=== PATIENT | female | born 1975 | race Caucasian/White ===

== ENCOUNTER 2018-04-15 20:25 | Emergency (ER) | payer MEDICAID ==
[~2018-04-15] VITALS: Ht 160 cm; Wt 63.0 kg
[~2018-04-15 20:25] MED LIST: ATIVAN1 MG ORAL; CELEXA20 MG ORAL; COLACE100 MG ORAL; CYTOMEL50 MCG PO; ENEMA READY TO135 ML RC; TRAZODONE HCL300 MG ORAL
[2018-04-15 21:20] VITALS: BP 118/67
[2018-04-15] MEDS ORDERED: Ketorolac 30mg Inj IV ONE (21:30)
[2018-04-15 21:31] LABS: APPEARANCE,URINE SLIGHTLY CLOUDY; BILIRUBIN, URINE NEGATIVE (NEGATIVE); GLUCOSE, URINE (UA) NEGATIVE (NEGATIVE); KETONES,URINE 1+ (NEGATIVE); LEUKOCYTE ESTERASE ,URINE 1+ (NEGATIVE); NITRITE,URINE NEGATIVE (NEGATIVE); PH,URINE 6.5 (4.5-8.0); PROTEIN,URINE NEGATIVE (NEGATIVE); UROBILINOGEN,URINE 4 MG/DL (0.0-1.0)
[2018-04-15 21:32] LABS: COLOR,URINE YELLOW
[2018-04-15 21:54] LABS: BASOPHILS % (AUTO) 1.7 % (0.0-2.0); EOSINOPHILS % (AUTO) 1.2 % (0.0-3.0); HEMATOCRIT 39.6 % (37.0-47.0); HEMOGLOBIN 13.5 G/DL (12.0-16.0); LYMPHOCYTES % (AUTO) 26.9 % (20.0-45.0); MEAN CORPUSCULAR VOLUME 92 FL (80-99); MONOCYTES % (AUTO) 4.8 % (1.0-10.0); NEUTROPHILS % (AUTO) 65.5 % (45.0-75.0); PLATELET COUNT 163 K/UL (150-450); RED BLOOD COUNT 4.31 M/UL (4.20-5.40); RED CELL DISTRIBUTION WIDTH 12.7 % (11.6-14.8); WHITE BLOOD COUNT 8.1 K/UL (4.8-10.8)
[2018-04-15 22:09] LABS: ANION GAP 5 mmol/L (5-15); BLOOD UREA NITROGEN 15 mg/dL (7-18); CALCIUM 9.1 MG/DL (8.5-10.1); CARBON DIOXIDE 29 MMOL/L (21-32); CHLORIDE 104 MMOL/L (98-107); CREATININE 0.8 MG/DL (0.55-1.30); POTASSIUM 3.7 MMOL/L (3.5-5.1); SODIUM 138 MMOL/L (136-145)
[2018-04-15 22:12] LABS: INR 0.9 (0.9-1.1)
[2018-04-15 22:13] LABS: ALANINE AMINOTRANSFERASE 23 U/L (12-78); ALBUMIN 3.7 G/DL (3.4-5.0); ALBUMIN/GLOBULIN RATIO 1.1 (1.0-2.7); ALKALINE PHOSPHATASE 75 U/L (46-116); ASPARTATE AMINO TRANSFERASE 28 U/L (15-37); BILIRUBIN,TOTAL 0.2 MG/DL (0.2-1.0)
[2018-04-15] MEDS ORDERED: Hydromorphone 0.5mg/0.5ml inj IVP ONE (22:15)
[2018-04-15 23:20] VITALS: BP 121/66
[2018-04-16 01:20] VITALS: BP 126/67
[2018-04-16] MEDS ORDERED: oxyCODONE HCL/Acetaminophen 5/325mg ORAL ONE ×2 (02:26→02:30)
--- NOTE | 2018-04-16 02:27 | Emergency Room Report ---
History of Present Illness General Chief Complaint: Back Pain-No Injury Source: Patient Present Illness HPI Patient presents with R knee pain. She has chronic back pain. The knee pain has been intermittent for many months. It has become unbearable recently. She is on antibiotics for a tooth infection. This has also caused diarrhea. Allergies: Coded Allergies: LEVOTHYROXINE SODIUM (Verified Allergy, Unknown, 09/05/16) SULFAMETHOXAZOLE (Verified Allergy, Unknown, 04/15/18) TRIMETHOPRIM (Verified Allergy, Unknown, 04/15/18) Uncoded Allergies: SYNTHROID (Allergy, Unknown, 09/02/16) Patient History Past Medical History: see triage record Social History Narrative disabled Last Menstrual Period: a week ago Now: No Reviewed Nursing Documentation: PMH: Agreed; PSxH: Agreed Nursing Documentation-PMH Hx Cardiac Problems: No Hx Cancer: No Hx Gastrointestinal Problems: Yes - Gastroporieses Hx Neurological Problems: No - Fibromyalgia, thyroidittis Review of Systems All Other Systems: negative except mentioned in HPI Physical Exam Vital Signs Date Time Temp Pulse Resp B/P (MAP) Pulse Ox O2 Delivery O2 Flow Rate FiO2 04/15/18 20:58 98.7 76 18 111/67 99 98.8 04/15/18 21:20 Room Air Medical Decision Making Diagnostic Impression: Primary Impression: Left knee pain Additional Impressions: Diarrhea Tooth pain Labs Test 04/15/18 21:17 04/15/18 21:40 Urine Color Yellow Urine Appearance Slightly cloudy Urine pH 6.5 (4.5-8.0) Urine Specific [place] 1.015 (1.005-1.035) Urine Protein Negative (NEGATIVE) Urine Glucose (UA) Negative (NEGATIVE) Urine Ketones 1+ (NEGATIVE) Urine Occult Blood 5+ (NEGATIVE) Urine Nitrite Negative (NEGATIVE) Urine Bilirubin Negative (NEGATIVE) Urine Urobilinogen 4 MG/DL (0.0-1.0) Urine Leukocyte Esterase 1+ (NEGATIVE) Urine RBC 40-60 /HPF (0 - 2) Urine WBC 0-2 /HPF (0 - 2) Urine Squamous Epithelial Cells Many /LPF (NONE/OCC) Urine Bacteria Few /HPF (NONE) White Blood Count 8.1 K/UL (4.8-10.8) Red Blood Count 4.31 M/UL (4.20-5.40) Hemoglobin 13.5 G/DL (12.0-16.0) Hematocrit 39.6 % (37.0-47.0) Mean Corpuscular Volume 92 FL (80-99) Mean Corpuscular Hemoglobin 31.3 PG (27.0-31.0) Mean Corpuscular Hemoglobin Concent 34.0 G/DL (32.0-36.0) Red Cell Distribution Width 12.7 % (11.6-14.8) Platelet Count 163 K/UL (150-450) Mean Platelet Volume 8.0 FL (6.5-10.1) Neutrophils (%) (Auto) 65.5 % (45.0-75.0) Lymphocytes (%) (Auto) 26.9 % (20.0-45.0) Monocytes (%) (Auto) 4.8 % (1.0-10.0) Eosinophils (%) (Auto) 1.2 % (0.0-3.0) Basophils (%) (Auto) 1.7 % (0.0-2.0) Erythrocyte Sedimentation Rate 1 MM/HR (0-20) Prothrombin Time 9.4 SEC (9.30-11.50) Prothromb Time International Ratio 0.9 (0.9-1.1) Activated Partial Thromboplast Time 26 SEC (23-33) Sodium Level 138 MMOL/L (136-145) Potassium Level 3.7 MMOL/L (3.5-5.1) Chloride Level 104 MMOL/L (98-107) Carbon Dioxide Level 29 MMOL/L (21-32) Anion Gap 5 mmol/L (5-15) Blood Urea Nitrogen 15 mg/dL (7-18) Creatinine 0.8 MG/DL (0.55-1.30) Estimat Glomerular Filtration Rate > 60 mL/min (>60) Glucose Level 93 MG/DL (74-106) Uric Acid 3.0 MG/DL (2.6-7.2) Calcium Level 9.1 MG/DL (8.5-10.1) Total Bilirubin 0.2 MG/DL (0.2-1.0) Aspartate Amino Transf (AST/SGOT) 28 U/L (15-37) Alanine Aminotransferase (ALT/SGPT) 23 U/L (12-78) Alkaline Phosphatase 75 U/L (46-116) C-Reactive Protein, Quantitative < 0.4 mg/dL (0.00-0.90) Total Protein 7.1 G/DL (6.4-8.2) Albumin 3.7 G/DL (3.4-5.0) Globulin 3.4 g/dL Albumin/Globulin Ratio 1.1 (1.0-2.7) Other X-Ray Diagnostic Results Other X-Ray Diagnostic Results : X-Ray ordered: L knee # of Views/Limited Vs Complete: 3 View Last Vital Signs Date Time Temp Pulse Resp B/P (MAP) Pulse Ox O2 Delivery O2 Flow Rate FiO2 04/16/18 02:37 98.7 74 18 121/66 98 Room Air 209.7 Status: improved Disposition: HOME, SELF-CARE Condition: Improved Referrals: [facility],REFERRING (PCP) Raghavendra Mcpherson M.D. Apr 16, 2018 02:27
[2018-04-16 02:37] VITALS: BP 121/66
--- NOTE | 2018-04-16 10:02 | Diagnostic Imaging Report ---
Indications: Pain Technique: Three views of the right knee Comparison: None Findings: No acute fractures. No dislocations. Joint spaces are preserved. No radiopaque foreign body. Normal mineralization. Impression: No acute process
== END 2018-04-16 02:37 | disposition home or self-care (01) ==
LOC: EMR 21:29
DX: M25.561 Pain in right knee (principal); G89.29 Other chronic pain; M54.9 Dorsalgia, unspecified; R19.7 Diarrhea, unspecified; K08.89 Other specified disorders of teeth and supporting structures; Z88.8 Allergy status to other drugs, medicaments and biological substances; Z88.2 Allergy status to sulfonamides
CPT/HCPCS: 36415; 73562; 80053; 81001; 84550; 85025; 85610; 85651; 85730; 86140; 96374; 96375; 99284; J1170; J1885; J2405

== ENCOUNTER 2018-04-21 17:41 | Emergency (ER) | payer MEDICAID ==
[~2018-04-21] VITALS: Ht 160 cm; Wt 70.3 kg
[2018-04-21 18:19] VITALS: BP 111/62
[2018-04-21] MEDS ORDERED: AMOXICILLI200 MG/5 M PO (18:32)
[2018-04-21] MEDS ORDERED: AMOXICILLI250 MG/5 M ORAL (18:32)
[2018-04-21] MEDS ORDERED: OMEPRAZOLE40 M1 ORAL (18:32)
[2018-04-21] MEDS ORDERED: TIROSINT125 MCG ORAL (18:32)
[2018-04-21] MEDS ORDERED: GABAPENTIN100 MG ORAL (18:32)
[2018-04-21] MEDS ORDERED: LINZESS145 MCG PO (18:32)
[2018-04-21 19:12] LABS: BASOPHILS % (AUTO) 1.1 % (0.0-2.0); EOSINOPHILS % (AUTO) 0.4 % (0.0-3.0); HEMATOCRIT 39.9 % (37.0-47.0); HEMOGLOBIN 13.3 G/DL (12.0-16.0); LYMPHOCYTES % (AUTO) 17.2 % (20.0-45.0); MEAN CORPUSCULAR VOLUME 94 FL (80-99); MONOCYTES % (AUTO) 4.9 % (1.0-10.0); NEUTROPHILS % (AUTO) 76.4 % (45.0-75.0); PLATELET COUNT 192 K/UL (150-450); RED BLOOD COUNT 4.25 M/UL (4.20-5.40); RED CELL DISTRIBUTION WIDTH 12.6 % (11.6-14.8); WHITE BLOOD COUNT 13.7 K/UL (4.8-10.8)
[2018-04-21 19:14] LABS: APPEARANCE,URINE CLEAR; BILIRUBIN, URINE NEGATIVE (NEGATIVE); COLOR,URINE PALE YELLOW; GLUCOSE, URINE (UA) NEGATIVE (NEGATIVE); KETONES,URINE NEGATIVE (NEGATIVE); LEUKOCYTE ESTERASE ,URINE NEGATIVE (NEGATIVE); NITRITE,URINE NEGATIVE (NEGATIVE); PH,URINE 6.5 (4.5-8.0); PROTEIN,URINE NEGATIVE (NEGATIVE); UROBILINOGEN,URINE NORMAL MG/DL (0.0-1.0)
[2018-04-21] MEDS ORDERED: DiphenhydrAMINE 50mg/ml Inj IVP ONE (19:15)
--- NOTE | 2018-04-21 19:18 | Emergency Room Report ---
History of Present Illness General Chief Complaint: Suicidal Source: Patient Present Illness HPI 42-year-old female presents emergency department complaining of not being properly prescribed her required pain medications by her new doctor. Patient reports that because she is not receiving her medications it is causing her to be depressed and she states that she is worried about what her "future will be like ." Patient denies specific plan for suicide she states that she has thought about it before. Patient states she is 10 out of 10 in severity pain in the back and in the bilateral legs she states she has history of fibromyalgia. Patient states she also has history of depression and anxiety. Previous suicide attempts she denies previous psychiatric hospitalizations other than substance detox. Patient is requesting a new prescription for Dilaudid as well as something for her pain here. Patient states that the has history of hypothyroidism. Patient reports that if she does not get her pain medication that it will exacerbate her depression and thoughts about suicide. Allergies: Coded Allergies: LEVOTHYROXINE SODIUM (Verified Allergy, Unknown, 09/05/16) SULFAMETHOXAZOLE (Verified Allergy, Unknown, 04/15/18) TRIMETHOPRIM (Verified Allergy, Unknown, 04/15/18) Uncoded Allergies: SYNTHROID (Allergy, Unknown, 09/02/16) Patient History Past Medical History: see triage record, psych hx - anxiety, depression - per pt. hx. Past Surgical History: none Pertinent Family History: none Social History: Reports: drug use Last Menstrual Period: irreg Now: No Reviewed Nursing Documentation: PMH: Agreed; PSxH: Agreed Nursing Documentation-PMH Past Medical History: No History, Except For Hx Cardiac Problems: No Hx Cancer: No Hx Gastrointestinal Problems: Yes - Gastroporieses Hx Neurological Problems: No - Fibromyalgia, thyroidittis Review of Systems All Other Systems: negative except mentioned in HPI Physical Exam Vital Signs Date Time Temp Pulse Resp B/P (MAP) Pulse Ox O2 Delivery O2 Flow Rate FiO2 04/21/18 17:43 98.6 98 18 98 Room Air 98.6 Medical Decision Making PA Attestation Dr. overton is my supervising Physician whom patient management has been discussed with. Diagnostic Impression: Primary Impression: Chronic pain Qualified Codes: G89.29 - Other chronic pain Additional Impression: Medication requested by patient but not prescribed or administered ER Course 42-year-old female presents emergency department complaining of not being properly prescribed her required pain medications by her new doctor. Patient reports that because she is not receiving her medications it is causing her to be depressed and she states that she is worried about what her "future will be like ." Patient denies specific plan for suicide she states that she has thought about it before. Patient states she is 10 out of 10 in severity pain in the back and in the bilateral legs she states she has history of fibromyalgia. Patient states she also has history of depression and anxiety. Denies previous suicide attempts, she denies previous psychiatric hospitalizations other than substance dependence detox. Patient is requesting a new prescription for Dilaudid as well as something for her pain here. Patient states that the has history of hypothyroidism. Pt is hyperactive, and has a very anxious and restless affect. Ddx considered but are not limited to OD, SI/HI, psychosis, UTI, intoxication, Drug seeking/ manipulation, malingering just to name a few. Vital signs: are WNL, pt. is afebrile H&PE are most consistent with Drug-seeking behavior. Patient is very histrionic and is has exceeded upon multiple requests/demands for pain medication specifically Dilaudid. . Recent is ambulatory with a steady gait speaking in full sentences. ORDERS: -CBC, CMP: unremarkable/WNL -UA: negative for infection see results attached. -UDS: Positive for Opiates -UA; Most indicative of contamination: presence of equal amounts of bacteria and squamous cells, no elevation in inflammatory markers, nitrite negative. -Salicylates and Acetaminophen - no acute intoxication. ED INTERVENTIONS: -50mg Benadryl IV Once patient was notified that she would not be receiving requested pain medications here during her ED visit patient stated that she wanted to leave she no longer endorsed SI. Patient is currently not on a hold and I therefore cannot force her to stay against her will. Patient requests to leave. Labs are WNL no acute intoxication. DISCHARGE: At this time pt. is stable for d/c to home with close outpatient follow up and pain management follow up. Will provide printed patient care instructions, and any necessary prescriptions. Care plan and follow up instructions have been discussed with the patient prior to discharge. Last Vital Signs Date Time Temp Pulse Resp B/P (MAP) Pulse Ox O2 Delivery O2 Flow Rate FiO2 04/21/18 18:19 98.6 75 18 111/62 98 Room Air 98.6 Disposition: HOME, SELF-CARE Condition: Stable Patient Instructions: Chronic Pain Additional Instructions: Take any previously prescribed medications as directed. Follow up with a Primary Care Provider in 3-5 days, even if your symptoms have resolved. --Please review list of primary care clinics, if you do not already have a primary care provider Return sooner to ED if new symptoms occur, or current symptoms become worse. The Emergency Department only prescribes CONTROLLED SUBSTANCES for acute injuries. There is no evidence of an emergent condition requiring the requested medication refill, and no evidence of an acute injury. Controlled substances are very addictive and require close monitoring when being prescribed controlled substances an outpatient treatment The emergency department is not a resource to be used as outpatient followup, and therefore reserve the regular prescribing, management or refill of regularly prescribed controlled substances for your PCP or your chronic pain management provider. This is for your safety -- We urge you to follow up with your PRIMARY CARE DOCTOR who can fully evaluate you , Monitor your condition and safely prescribe any necessary medications for your pain. - Please note that this Emergency Department Report was dictated using [employer] loss prevention manager technology software, occasionally this can lead to erroneous entry secondary to interpretation by the dictation equipment. Veronique Castillo Apr 21, 2018 19:18
[2018-04-21 19:20] VITALS: BP 111/62
[2018-04-21 19:23] LABS: ANION GAP 7 mmol/L (5-15); BLOOD UREA NITROGEN 13 mg/dL (7-18); CALCIUM 9.2 MG/DL (8.5-10.1); CARBON DIOXIDE 28 MMOL/L (21-32); CHLORIDE 104 MMOL/L (98-107); CREATININE 0.8 MG/DL (0.55-1.30); POTASSIUM 3.4 MMOL/L (3.5-5.1); SODIUM 139 MMOL/L (136-145)
[2018-04-21 19:27] LABS: ALANINE AMINOTRANSFERASE 23 U/L (12-78); ALBUMIN 3.9 G/DL (3.4-5.0); ALBUMIN/GLOBULIN RATIO 1.1 (1.0-2.7); ALKALINE PHOSPHATASE 66 U/L (46-116); ASPARTATE AMINO TRANSFERASE 16 U/L (15-37); BILIRUBIN,TOTAL 0.3 MG/DL (0.2-1.0)
== END 2018-04-21 19:30 | disposition home or self-care (01) ==
LOC: EMR 18:18
DX: G89.29 Other chronic pain (principal); M54.9 Dorsalgia, unspecified; E03.9 Hypothyroidism, unspecified; Z88.8 Allergy status to other drugs, medicaments and biological substances; F32.9 Major depressive disorder, single episode, unspecified; Z88.2 Allergy status to sulfonamides
CPT/HCPCS: 36415; 80053; 80307; 80329; 81003; 81025; 85025; 99283